=== PATIENT | male | born 1955 | race Caucasian/White ===

== ENCOUNTER → 2017-01-22 | Outpatient (CLI) | payer OTHER ==
[~2017-01-22] MED LIST: ASPIRIN80 MG PO; Lopressor25 MG PO; SIMVASTATIN40 MG PO; ZESTRIL,PRINIVIL5 MG PO
[2017-01-22 08:20] LABS: CHOLESTEROL 154 mg/dL (<200); SGOT/AST 46 IU/L (3-35); SGPT/ALT 26 U/L (12-78); TRIGLYCERIDES 70 mg/dl (<150); VLDL CHOLESTEROL 14 mg/dL (6-40)
[2017-01-22 08:21] LABS: HDL CHOLESTEROL 68 mg/dl (40-60); LDL CHOLESTEROL 72 mg/dL (9-159)
== END | disposition home or self-care (01) ==
LOC: LAB 07:25
PROVIDERS: Internal Medicine Interventional Cardiology
DX: E78.2 Mixed hyperlipidemia (principal)

== ENCOUNTER → 2018-09-01 | Outpatient (CLI) | payer OTHER ==
[2018-09-01 08:47] LABS: CHOLESTEROL 169 mg/dL (<200); HDL CHOLESTEROL 52 mg/dl (40-60); LDL CHOLESTEROL 89 mg/dL (9-159); SGOT/AST 44 IU/L (3-35); SGPT/ALT 27 U/L (12-78); TRIGLYCERIDES 140 mg/dl (<150); VLDL CHOLESTEROL 28 mg/dL (6-40)
== END | disposition home or self-care (01) ==
LOC: LAB 07:07
PROVIDERS: Internal Medicine Interventional Cardiology
DX: I10 Essential (primary) hypertension (principal)

== ENCOUNTER → 2019-11-23 | Outpatient (CLI) | payer OTHER ==
[2019-11-23 08:18] LABS: CHOLESTEROL 153 mg/dL (<200); HDL CHOLESTEROL 54 mg/dl (40-60); LDL CHOLESTEROL 70 mg/dL (9-159); TRIGLYCERIDES 147 mg/dl (<150); VLDL CHOLESTEROL 29 mg/dL (6-40)
== END | disposition home or self-care (01) ==
LOC: LAB 07:07
PROVIDERS: Internal Medicine
DX: I10 Essential (primary) hypertension (principal)